=== PATIENT | male | born 1980 | race Caucasian/White ===

== ENCOUNTER 2017-04-20 06:35 | Emergency (ER) | payer BC, MEDICAID, OTHER, SELFPAY ==
[~2017-04-20] VITALS: Ht 177.8 cm; Wt 85.5 kg
[2017-04-20] MEDS ORDERED: OXYcodone/APAP 10/325MG TABLET ONE (07:46)
[2017-04-20] MEDS ORDERED: OXYcodone/APAP 10/325MG TABLET PO ONE (08:00)
[2017-04-20 09:44] VITALS: BP 129/93
== END 2017-04-20 09:50 | disposition home or self-care (01) ==
LOC: ED 09:38
DX: S92.001A Unspecified fracture of right calcaneus, initial encounter for closed fracture (principal); S32.009A Unspecified fracture of unspecified lumbar vertebra, initial encounter for closed fracture; X58.XXXA Exposure to other specified factors, initial encounter; Y93.89 Activity, other specified; Y92.89 Other specified places as the place of occurrence of the external cause; Y99.8 Other external cause status
CPT/HCPCS: 81003; 99285

== ENCOUNTER 2017-12-02 05:43 | Emergency (ER) | payer MEDICAID ==
[~2017-12-02] VITALS: Ht 182.9 cm; Wt 100.9 kg
[2017-12-02 07:59] VITALS: BP 143/91
== END 2017-12-02 08:41 | disposition home or self-care (01) ==
LOC: ED 08:19
DX: L03.113 Cellulitis of right upper limb (principal); S92.001A Unspecified fracture of right calcaneus, initial encounter for closed fracture; Z87.891 Personal history of nicotine dependence; W10.9XXA Fall (on) (from) unspecified stairs and steps, initial encounter; Y93.89 Activity, other specified; Y92.89 Other specified places as the place of occurrence of the external cause; Y99.8 Other external cause status
CPT/HCPCS: 99284

== ENCOUNTER 2018-01-23 05:34 | Emergency (ER) | payer MEDICAID ==
[~2018-01-23] VITALS: Ht 180.3 cm; Wt 100.3 kg
[2018-01-23] MEDS ORDERED: KETOROLAC 30 MG/1 ML IM ONE (06:00)
[2018-01-23 06:08] LABS: BASOPHILS # (AUTO) 0.05 x10^3/uL (0-0.1); BASOPHILS % (AUTO) 1 % (0-1); EOSINOPHILS # (AUTO) 0.23 x10^3/uL (0-0.4); EOSINOPHILS % (AUTO) 3 % (1-7); LYMPHOCYTES # (AUTO) 2.43 x10^3/uL (1-3.4); LYMPHOCYTES % (AUTO) 30 % (22-44); MD NO; MEAN CORPUSCULAR HEMOGLOBIN 29.7 pg (27.5-34.5); MEAN CORPUSCULAR HGB CONC 33.5 g/dL (33.2-36.2); MEAN CORPUSCULAR VOLUME 88.6 fL (81-97); MONOCYTES # (AUTO) 0.61 x10^3/uL (0.2-0.8); MONOCYTES % (AUTO) 8 % (2-9); NEUTROPHILS # (AUTO) 4.85 x10^3/uL (1.8-6.8); NEUTROPHILS % (AUTO) 59 % (42-75); PLATELET COUNT 296 x10^3/uL (130-400); RED BLOOD COUNT 5.21 x10^6/uL (4.38-5.82); RED CELL DISTRIBUTION WIDTH 13.4 % (9.4-14.8)
[2018-01-23 06:22] LABS: ALBUMIN 3.5 g/dL (3.4-5.0); ANION GAP 7 mmol/L (5-15); CALCIUM 8.6 mg/dL (8.5-10.1); CHLORIDE 105 mmol/L (98-107)
[2018-01-23 06:25] LABS: ALANINE AMINOTRANSFERASE 53 U/L (12-78); ALKALINE PHOSPHATASE 149 U/L (45-117); BILIRUBIN,TOTAL 0.5 mg/dL (0.2-1.0); TOTAL PROTEIN 7.6 g/dL (6.4-8.2)
[2018-01-23] MEDS ORDERED: KETOROLAC 30 MG/1 ML ONE (06:34)
[2018-01-23 06:35] LABS: MICROSCOPIC NOT IND
[2018-01-23 06:37] LABS: CULTURE INDICATED? NO
[2018-01-23 07:24] VITALS: BP 157/91
== END 2018-01-23 07:40 | disposition home or self-care (01) ==
LOC: ED 07:01
DX: S39.012A Strain of muscle, fascia and tendon of lower back, initial encounter (principal); I10 Essential (primary) hypertension; R10.9 Unspecified abdominal pain; X58.XXXA Exposure to other specified factors, initial encounter; Y93.89 Activity, other specified; Y92.89 Other specified places as the place of occurrence of the external cause; Y99.8 Other external cause status
CPT/HCPCS: 36415; 76770; 80053; 81003; 85025; 96372; 99285; J1885

== ENCOUNTER 2018-06-08 00:02 | Emergency (ER) | payer SELFPAY ==
[~2018-06-08] VITALS: Ht 180.3 cm; Wt 94.7 kg
[2018-06-08 01:30] VITALS: BP 132/81
== END 2018-06-08 01:32 | disposition home or self-care (01) ==
LOC: ED 00:39
DX: S93.421A Sprain of deltoid ligament of right ankle, initial encounter (principal); Z87.891 Personal history of nicotine dependence; X50.1XXA Overexertion from prolonged static or awkward postures, initial encounter; Y93.89 Activity, other specified; Y92.89 Other specified places as the place of occurrence of the external cause; Y99.8 Other external cause status
CPT/HCPCS: 29515; 99283